=== PATIENT | female | born 1985 | race Caucasian/White ===

== ENCOUNTER 2019-03-12 05:03 | Inpatient (IN) ==
[2019-03-12] MEDS ORDERED: ONDANSETRON 4 MG/2 ML VIAL IV PRN ×2 (05:15→09:51)
[2019-03-12] MEDS ORDERED: BUTORPHANOL 2 MG/ML VIAL IV PRN (05:28)
[2019-03-12] MEDS ORDERED: LACTATED RINGERS 1,000 ML IV SCH ×2 (05:30→06:00)
[2019-03-12] MEDS ORDERED: OXYTOCIN/LR 20 UNIT/1,000 ML BAG IV SCH (05:30)
[2019-03-12 05:32] LABS: Basophils % 0.4 % (0.0-0.8); Eosinophils # 0.1 10*3/uL (0.0-0.87); Eosinophils % 0.7 % (0.00-10.9); Hematocrit 31.4 VOL% (35.7-47.0); Immature Granulocytes % 0.4 %; Immature Granulocytes Absolute 0.03 #; Lymphocytes # 1.9 10*3/uL (1.4-4.0); Lymphocytes % 23.9 % (21.3-54.2); Mean Corpuscular HGB Conc 31.8 GM/DL (32-36); Mean Corpuscular Volume 86.3 FL (87-102); Mean Platelet Volume 10.1 FL (9.6-12.0); Monocytes % 8.2 % (1.7-12.7); Neutrophils % 66.4 % (38.7-73.9); Platelet Count 233 T/CUMM (130-400); Red Blood Count 3.64 MC/CUMM (3.8-5.5); Red Cell Distribution Width 13.2 % (9.3-17.3); White Blood Count 8.1 T/CUMM (4-12)
[2019-03-12] MEDS ORDERED: diphenhydrAMINE 50 MG/1 ML VIAL IV PRN (05:42)
[2019-03-12] MEDS ORDERED: NALOXONE 0.4 MG/ML VIAL IV PRN (05:42)
[2019-03-12] MEDS ORDERED: CITRIC ACID/SODIUM CITRATE 30 ML UDCUP ONE (05:42)
[2019-03-12] MEDS ORDERED: LACTATED RINGERS 250 ML IV PRN (05:42)
[2019-03-12] MEDS ORDERED: ePHEDrine 50 MG/ML AMP ONE (05:43)
[2019-03-12] MEDS ORDERED: fentaNYL 2 MCG/ROPIV 0.2% EPID 100 ML EPIDURAL ONE (05:43)
[2019-03-12 05:56] LABS: Albumin 2.6 G/DL (3.4-5.0); Bilirubin,Total 0.5 MG/DL (0.2-1.0); Calcium 8.2 MG/DL (8.5-10.1); Osmolality,Calculated 274.5 MOS/KG (273-304); Total Protein 6.4 G/DL (6.4-8.3)
[2019-03-12] MEDS ORDERED: fentaNYL 2 MCG/ROPIV 0.2% EPID 100 ML EPIDURAL SCH (06:00)
[2019-03-12 06:10] LABS: Cord Arterial Blood HCO3 25.4 MMOL/L
[2019-03-12 06:12] LABS: Cord Venous Blood HCO3 22.9 MMOL/L; Cord Venous Blood PO2 36.4 MMHG
[2019-03-12] MEDS: IBUPROFEN 800 MG TABLET PO PRN ×2 (08:36→20:09)
[2019-03-12] MEDS ORDERED: WITCH HAZEL PADS 100/JAR TOP PRN (09:51)
[2019-03-12] MEDS ORDERED: MEASLES/MUMPS/RUBELLA VACCINE 0.5 ML VIAL SUBCUT ONE (09:51)
[2019-03-12] MEDS ORDERED: oxyCODONE/ACETAMINOPHEN 5-325 MG TABLET PO PRN ×2 (09:51)
[2019-03-12] MEDS ORDERED: BENZOCAINE 20%/MENTHOL 0.5% SPRAY 56 GM CAN TOP PRN (09:51)
[2019-03-12] MEDS ORDERED: HYDROCORTISONE 2.5% RECTAL CREAM 30 GM TUBE TOP PRN (09:51)
[2019-03-12] MEDS ORDERED: DIPH/TET/ACEL PERT BOOSTER VACCINE 0.5 ML VIAL IM ONE (09:51)
[2019-03-12] MEDS ORDERED: ACETAMINOPHEN 325 MG TABLET PO PRN (09:51)
[2019-03-12] MEDS ORDERED: LANOLIN 50% CREAM 0.3 OZ TUBE TOP PRN (09:51)
[2019-03-12] MEDS ORDERED: BISACODYL 10 MG SUPP RECTAL PRN (09:51)
[2019-03-12] MEDS ORDERED: OXYTOCIN/LR 20 UNIT/1,000 ML BAG IV ONE (09:51)
[2019-03-12] MEDS: DOCUSATE SODIUM 100 MG CAPSULE PO SCH (20:39)
[2019-03-13] MEDS: IBUPROFEN 800 MG TABLET PO PRN (04:04)
[2019-03-13 05:42] LABS: Basophils % 0.4 % (0.0-0.8); Eosinophils # 0.2 10*3/uL (0.0-0.87); Eosinophils % 1.8 % (0.00-10.9); Hematocrit 25.3 VOL% (35.7-47.0); Immature Granulocytes % 0.6 %; Immature Granulocytes Absolute 0.06 #; Lymphocytes # 2.4 10*3/uL (1.4-4.0); Lymphocytes % 25.4 % (21.3-54.2); Mean Corpuscular HGB Conc 31.6 GM/DL (32-36); Mean Corpuscular Volume 88.2 FL (87-102); Mean Platelet Volume 10.3 FL (9.6-12.0); Monocytes % 5.9 % (1.7-12.7); Neutrophils % 65.9 % (38.7-73.9); Platelet Count 198 T/CUMM (130-400); Red Blood Count 2.87 MC/CUMM (3.8-5.5); Red Cell Distribution Width 13.4 % (9.3-17.3); White Blood Count 9.5 T/CUMM (4-12)
[2019-03-13] MEDS ORDERED: MULTIVITAMIN (PRENATAL) TABLET PO SCH (09:00)
[2019-03-13] MEDS: DOCUSATE SODIUM 100 MG CAPSULE PO SCH (10:31)
[2019-03-13] MEDS: SULFACETAMIDE 10% OPH SOLN 15 ML BOTTLE BOTH EYES SCH ×2 (11:19→13:45)
[2019-03-13 11:35] VITALS: BP 130/84
== END 2019-03-13 18:05 | disposition home or self-care (01) | DRG 807 ==
LOC: N.LDOUT 05:03 → N.LD 05:06 → N.OB 09:49
PROVIDERS: ADMIT Obstetrics & Gynecology; ATTEND Specialist